=== PATIENT | female | born 1995 | race Caucasian/White ===

== ENCOUNTER 2017-05-23 04:10 | Emergency (ER) | payer OTHER ==
[2017-05-23 04:15] VITALS: BP 123/67
[2017-05-23] MEDS ORDERED: DIPH/PERTUSS(ACELL)/TETANUS VAC/PF 0.5 ML SYR (>=10YO) IM ONE (04:44)
--- NOTE | 2017-05-23 04:59 | ER Document Report ---
ED General - General Chief Complaint: Foot Injury Stated Complaint: STEPPED ON TABITHA NAIL Time Seen by Provider: 05/23/17 04:32 Mode of Arrival: Ambulatory Information source: Patient Notes: Patient presents emergency department with reports that she stepped on a tabitha nail yesterday when she was barefoot and now she cannot feel her foot. Patient reports [facility] [place] without shoes on and stepped on a nail that was in a board. She is not sure how far she stepped down on it. She reports it was a large tabitha nail. Patient reports she cleaned her foot right away with dish soap and peroxide. She even stuck her finger in the wound to make sure she cleaned it well. Reports her tetanus is not up-to-date. Reports that she cannot feel the top of the foot. Reports pain to the plantar area where the puncture wound is. Denies f/n/v/d. TRAVEL OUTSIDE OF THE [place] IN LAST 30 DAYS: No - HPI Patient complains to provider of: foot pain Onset: Yesterday Quality of pain: Achy Severity: Severe Pain Level: 4 Associated symptoms: None Exacerbated by: Movement, Walking Relieved by: Denies Similar symptoms previously: No Recently seen / treated by doctor: No - Related Data Allergies/Adverse Reactions: Sulfa (Sulfonamide Antibiotics) Allergy (Verified 05/23/17 04:13) Penicillins Adverse Reaction (Unknown, Verified 05/23/17 04:13) Past Medical History - General Information source: Patient Last Menstrual Period: last week - Social History Smoking Status: Current Every Day Smoker Cigarette use (# per day): Yes Frequency of alcohol use: None Drug Abuse: None Family History: Reviewed & Not Pertinent Patient has suicidal ideation: No Patient has homicidal ideation: No - Medical History Medical History: Negative Renal/ Medical History: Denies: Hx Peritoneal Dialysis Past Surgical History: Reports: Hx Cholecystectomy, Hx Oral Surgery, Hx Orthopedic Surgery - Left Knee - Immunizations Hx Diphtheria, Pertussis, Tetanus Vaccination: - unknown Immunizations Comment: pt states "I called and they told me I wasn't due for 3 years" unknown date Review of Systems - Review of Systems Notes: Review HPI for review of systems., All other systems negative Physical Exam - Vital signs Vitals: Temp Pulse Resp BP Pulse Ox 98.8 F 90 16 123/67 97 05/23/17 04:13 05/23/17 04:13 05/23/17 04:13 05/23/17 04:13 05/23/17 04:13 - Notes Notes: PHYSICAL EXAMINATION: GENERAL: Well-appearing and in no acute distress HEAD: Atraumatic, normocephalic. EYES: Pupils equal round extraocular movements intact, sclera anicteric, conjunctiva are normal. ENT: nares patent, Moist mucous membranes. NECK: Normal range of motion, supple LUNGS: RR even/unlabored HEART: Regular rate EXTREMITIES: Normal range of motion, no pitting edema. No cyanosis. brisk cap refill, puncture wound noted to left plantar area, reports unable to fully flex toes, extends without problem, good pedal pulse NEUROLOGICAL: Cranial nerves grossly intact. Normal sensory/motor exams. PSYCH: Normal mood, normal affect. SKIN: Warm, Dry, normal turgor, no rashes or lesions noted Course - Vital Signs Vital signs: Temp Pulse Resp BP Pulse Ox 98.8 F 90 16 123/67 97 05/23/17 04:13 05/23/17 04:13 05/23/17 04:13 05/23/17 04:13 05/23/17 04:13 Discharge - Discharge Clinical Impression: Elevated blood pressure reading Puncture wound of plantar aspect of foot Qualifiers: Encounter type: initial encounter Laterality: left Qualified Code(s): S91.332A - Puncture wound without foreign body, left foot, initial encounter Condition: Stable Disposition: HOME, SELF-CARE Instructions: Puncture Wound ([facility]), Tetanus Immunization Given ([facility]), Oral Narcotic Medication ([facility]) Additional Instructions: *You have been evaluated for puncture wound *Keep your foot clean, wear good supporting shoes *Monitor the bottom of your foot for signs of infection such as swelling, redness, warmth, increased pain *Follow up with a primary care provider within 5 days *Take medication as prescribed *Return to ED for worsening condition, changes, needs, return to the Emergency Department for signs of infection Monitor your blood pressure. Your blood pressure was elevated today. This may be because you were anxious, in pain or because you need medication. It is important to follow up with your primary care provider for full evaluation. Forms: Elevated Blood Pressure
--- NOTE | 2017-05-23 05:28 | RADIOLOGY REPORT (SQ) ---
EXAM DESCRIPTION: FOOT LEFT COMPLETE COMPLETED DATE/TIME: 05/23/2017 5:08 am REASON FOR STUDY: stepped on a brittney nail COMPARISON: None. NUMBER OF VIEWS: Three views. TECHNIQUE: AP, lateral and oblique radiographic images acquired of the left foot. LIMITATIONS: None. FINDINGS: MINERALIZATION: Normal. BONES: No acute fracture or dislocation. SOFT TISSUES: No soft tissue swelling. No radiopaque foreign body. IMPRESSION: No radiographic evidence for acute fracture or radiopaque foreign body. TECHNICAL DOCUMENTATION: JOB ID: [id number] [employer]- All Rights Reserved
[2017-05-23] MEDS ORDERED: HYDROCODONE/ACETAMINOPHEN 5-325 MG TABLET PO ONE (05:39)
[2017-05-23] MEDS ORDERED: HYDROCODONE/ACETAMINOPHEN 5-325 MG 6 TAB/DSPK PO PRN (05:39)
== END 2017-05-23 05:58 | disposition home or self-care (01) ==
LOC: ER 04:10
DX: S91.332A Puncture wound without foreign body, left foot, initial encounter (principal); W45.0XXA Nail entering through skin, initial encounter; R03.0 Elevated blood-pressure reading, without diagnosis of hypertension; F17.210 Nicotine dependence, cigarettes, uncomplicated; Z88.2 Allergy status to sulfonamides
CPT/HCPCS: 90471; 90715; 99283